=== PATIENT | male | born 1985 | race African-American/Black ===

== ENCOUNTER 2023-09-12 14:18 | Emergency (ER) | payer MEDICAID, SELFPAY ==
[2023-09-12 14:41] VITALS: BP 151/92; PULSE 65; TEMP 37; O2SAT 100; BMI 32.3
== END 2023-09-12 15:01 | disposition left against medical advice (07) ==
LOC: ER 14:33
PROVIDERS: Emergency Provider Emergency Medicine; PCP Family Medicine
DX: Z53.21 Procedure and treatment not carried out due to patient leaving prior to being seen by health care provider (principal)